=== PATIENT | female | born 1940 | race Caucasian/White ===

== ENCOUNTER 2022-05-14 16:32 | Outpatient (REF) | payer MEDICARE, SELFPAY ==
[2022-05-14 18:30] LABS: HCT 39.8 % (36.0-46.0); HGB 13.1 g/dL (11.2-15.7); MCH 31.6 pg (27.0-33.0); MCHC 32.9 % (32.0-36.0); MCV 96 fL (80-95); Platelet Count 250 10^3/uL (130-400); RBC 4.15 10^6/uL (3.93-5.22); RDW 12.2 % (11.7-14.6); RDW-SD 43.4 fL; WBC 8.94 10^3/uL (4.4-10.8)
[2022-05-14 18:33] LABS: Anion Gap 7.1 mmol/L (3-11); BUN 28 mg/dL (7-18); CO2 32.9 mmol/L (21.0-32.0); CREATININE 1.1 mg/dL (0.55-1.02); Calcium 9.8 mg/dL (8.5-10.1); Chloride 104 mmol/L (98-107); Estimated GFR 50.17 (mL/min/1.73m2); Glucose 132 mg/dL (74-106); Potassium 3.9 mmol/L (3.5-5.1); Sodium 144 mmol/L (136-145)
[2022-05-14 18:49] LABS: Hemoglobin A1C 5.8 % (<5.7)
== END 2022-05-14 16:33 | disposition home or self-care (01) ==
LOC: NCHCN 16:32
PROVIDERS: Visit Provider Physician Assistant
DX: E11.9 Type 2 diabetes mellitus without complications (principal); I50.9 Heart failure, unspecified
CPT/HCPCS: 80048; 85027; 83036

== ENCOUNTER 2022-07-28 16:12 | Outpatient (REF) | payer MEDICARE, SELFPAY ==
[2022-07-29 11:29] LABS: Anion Gap 6.5 mmol/L (3-11); BUN 28 mg/dL (7-18); CO2 29.5 mmol/L (21.0-32.0); CREATININE 1.2 mg/dL (0.55-1.02); Chloride 101 mmol/L (98-107); Estimated GFR 45.19 (mL/min/1.73m2); Glucose 128 mg/dL (74-106); Potassium 4.3 mmol/L (3.5-5.1); Sodium 137 mmol/L (136-145)
[2022-07-29 12:15] LABS: Calcium 9.5 mg/dL (8.5-10.1)
== END 2022-07-28 16:13 | disposition home or self-care (01) ==
LOC: NCHCN 16:12
PROVIDERS: Visit Provider Physician Assistant
DX: I10 Essential (primary) hypertension (principal)
CPT/HCPCS: 80048

== ENCOUNTER 2023-10-13 21:48 | Outpatient (REF) | payer MEDICARE, SELFPAY ==
[2023-10-13 19:31] LABS: Hemoglobin A1C 5.8 % (<5.7)
[2023-10-13 19:40] LABS: NT-proBNP 1708 pg/mL (<300)
[2023-10-14 08:36] LABS: HCT 38.4 % (36.0-46.0); HGB 12.5 g/dL (11.2-15.7); MCH 31.6 pg (27.0-33.0); MCHC 32.6 % (32.0-36.0); MCV 97 fL (80-95); MPV 10.3 fL (8.0-11.0); Platelet Count 149 10^3/uL (130-400); RBC 3.96 10^6/uL (3.93-5.22); RDW 13.7 % (11.7-14.6); RDW-SD 49.2 fL; WBC 6.34 10^3/uL (4.4-10.8)
[2023-10-14 08:41] LABS: Anion Gap 13.2 mmol/L (3-11); BUN 10 mg/dL (7-18); CO2 25.8 mmol/L (21.0-32.0); CREATININE 1.2 mg/dL (0.55-1.02); Calcium 9.5 mg/dL (8.5-10.1); Chloride 104 mmol/L (98-107); Estimated GFR 44.64 (mL/min/1.73m2); Glucose 134 mg/dL (74-106); Magnesium 1.7 mg/dL (1.8-2.4); Potassium 3.7 mmol/L (3.5-5.1); Sodium 143 mmol/L (136-145)
== END 2023-10-13 21:49 | disposition home or self-care (01) ==
LOC: NCHCN 21:48
PROVIDERS: Visit Provider Nurse Practitioner Family
DX: R73.03 Prediabetes (principal); R41.0 Disorientation, unspecified; Z00.00 Encounter for general adult medical examination without abnormal findings
CPT/HCPCS: 80048; 85027; 83036; 83735; 83880

== ENCOUNTER 2023-11-03 15:24 | Outpatient (REF) | payer MEDICARE, SELFPAY ==
[2023-11-03 19:42] LABS: NT-proBNP 1043 pg/mL (<300)
== END 2023-11-03 15:25 | disposition home or self-care (01) ==
LOC: NCHCN 15:24
PROVIDERS: Visit Provider Physician Assistant
DX: I50.9 Heart failure, unspecified (principal); I42.9 Cardiomyopathy, unspecified
CPT/HCPCS: 83880